=== PATIENT | male | born 1955 | race Native Hawaiian/Other Pacific Islander ===

== ENCOUNTER 2022-09-06 09:44 | Outpatient (CLI) | payer OTHER | END 2022-09-06 19:52 | disposition home or self-care (01) | LOC: US 09:44 | PROVIDERS: ATTEND Physician Assistant | DX: R10.12 Left upper quadrant pain (principal) ==

== ENCOUNTER 2022-09-18 08:50 | Outpatient (CLI) | payer OTHER | END 2022-09-18 18:58 | disposition home or self-care (01) | LOC: CT 08:50 | PROVIDERS: ATTEND Physician Assistant | DX: R19.04 Left lower quadrant abdominal swelling, mass and lump (principal) | CPT/HCPCS: 36415; 82565; 84520; Q9963 ==

== ENCOUNTER 2022-10-07 07:45 | Outpatient (CLI) | payer OTHER | END 2022-10-07 19:26 | disposition home or self-care (01) | LOC: CT 07:45 | PROVIDERS: ATTEND Internal Medicine Hematology & Oncology | DX: R06.02 Shortness of breath (principal); R19.02 Left upper quadrant abdominal swelling, mass and lump; R93.89 Abnormal findings on diagnostic imaging of other specified body structures | CPT/HCPCS: Q9963 ==

== ENCOUNTER 2023-03-05 07:38 | Outpatient (CLI) | payer OTHER | END 2023-03-05 18:58 | disposition home or self-care (01) | LOC: CT 07:38 | PROVIDERS: ATTEND Surgery Surgical Oncology | DX: R19.09 Other intra-abdominal and pelvic swelling, mass and lump (principal) | CPT/HCPCS: 36415; 82565; 84520; Q9963 ==

== ENCOUNTER 2023-04-15 08:51 | Outpatient (CLI) | payer OTHER | END 2023-04-15 18:53 | disposition home or self-care (01) | LOC: CT 08:51 | PROVIDERS: ATTEND Surgery Surgical Oncology | DX: R19.09 Other intra-abdominal and pelvic swelling, mass and lump (principal) ==